=== PATIENT | male | born 1990 | race Caucasian/White ===

== ENCOUNTER 2018-11-06 12:23 | Emergency (ER) | payer SELFPAY ==
[2018-11-06] MEDS ORDERED: NA CHLORIDE 0.9% 1,000 ML ONE (13:15)
[2018-11-06] MEDS ORDERED: MORPHINE 4 MG/ML SYR ONE (13:15)
[2018-11-06] MEDS ORDERED: ONDANSETRON 4 MG/2 ML VIAL ONE (13:15)
[2018-11-06 13:20] LABS: Absolute Lymphocytes (CBC) 1.7 K/uL (0.7-4.9); Absolute Monocytes 0.6 K/uL (0.1-1.3); Absolute Neutrophil 3.9 K/uL (1.8-8.0); Basophils % 0.6 % (0-1.3); Hematocrit 44.3 % (39.6-49.0); Lymphocytes % 26.5 % (15.3-44.8); MPV 7.7 fL (7.6-11.3); Monocytes % 8.9 % (3.3-12.3); RBC Red Blood Cell Count 5.06 M/uL (4.33-5.43)
[2018-11-06 13:38] LABS: ALT/SGPT 28 U/L (12-78); AST/SGOT 12 U/L (15-37); Albumin 3.9 g/dL (3.4-5.0); Alkaline Phosphatase 65 U/L (45-117); BUN Blood Urea Nitrogen 14 mg/dL (7-18); Bicarbonate 30 mmol/L (21-32); Bilirubin Direct < 0.1 mg/dL (0-0.2); Bilirubin Total 0.3 mg/dL (0.2-1.0); Glucose Level 84 mg/dL (74-106); Lipase 109 U/L (73-393); Protein, Total 7.6 g/dL (6.4-8.2); Sodium Level 141 mmol/L (136-145)
--- NOTE | 2018-11-06 14:05 | RAD REPORT ---
EXAM DESCRIPTION: US - Abdomen Exam Limited - 11/06/2018 1:53 pm CLINICAL HISTORY: right sided abdominal pain COMPARISON: No comparisons FINDINGS: The gallbladder demonstrates no gallstones. No pericholecystic fluid or gallbladder wall t hickening. The common bile duct is normal measuring 3 mm. The liver demonstrates no findings of intrahepatic biliary dilatation. IMPRESSION: Unremarkable examination.
--- NOTE | 2018-11-06 14:17 | RAD REPORT ---
EXAM DESCRIPTION: CTAbdomen Pelvis W Contrast - 11/06/2018 2:07 pm CLINICAL HISTORY: Abdominal pain. right sided abdominal pain, IV ONLY COMPARISON: Abdomen Exam Limited dated 11/06/2018 TECHNIQUE: Biphasic CT imaging of the abdomen and pelvis was performed with 100 ml non-ionic IV cont rast. All CT scans are performed using dose optimization technique as appropriate and may include automated exposure control or mA/KV adjustment according to patient size. FINDINGS: The lung bases are clear. The liver, spleen, pancreas, adrenal glands and kidneys are within normal limits. No bowel obstruction, free air, free fluid or abscess. Sigmoid diverticulosis without diverticulitis. The appendix is normal. No evidence of significant lymphadenopathy. No suspicious bony findings. IMPRESSION: No acute intra-abdominal or pelvic finding.
[2018-11-06] MEDS ORDERED: KETOROLAC 30 MG/ML INJ ONE (14:40)
--- NOTE | 2018-11-06 16:07 | ER ---
Nurse's Notes [facility] Name: Gera Moore Age: 27 yrs Sex: Male : 1990 Arrival Date: 11/06/2018 Time: 12:25 Bed 14 Private MD: None, None Diagnosis: Unspecified abdominal pain Presentation: 11/06 12:41 Presenting complaint: Patient states: sharp pain to RLQ and RUQ pain that began 2-3 aa5 days ago. Pt denies N/V/D. Transition of care: patient was not received from another setting of care. Onset of symptoms was November 2018. Risk Assessment: Do you want to hurt yourself or someone else? Patient reports no desire to harm self or others. Initial Sepsis Screen: Does the patient meet any 2 criteria? No. Patient's initial sepsis screen is negative. Does the patient have a suspected source of infection? No. Patient's initial sepsis screen is negative. Care prior to arrival: None. 12:41 Method Of Arrival: Ambulatory aa5 12:41 Acuity: COLE 3 aa5 Historical: - Allergies: 12:41 No Known Allergies; aa5 - PMHx: 12:41 None; aa5 - PSHx: 12:41 None; aa5 - Immunization history:: Adult Immunizations up to date. - Social history:: Smoking status: Patient uses tobacco products, 1-2 cigarettes a day . - Ebola Screening: : No symptoms or risks identified at this time. Screenin:00 Abuse screen: Denies threats or abuse. Denies injuries from another. Nutritional jl7 screening: No deficits noted. Tuberculosis screening: No symptoms or risk factors identified. Fall Risk IV access (20 points). Assessment: 13:00 General: Appears in no apparent distress. uncomfortable, Behavior is calm, cooperative, jl7 appropriate for age. Pain: Complains of pain in right upper quadrant and right lower quadrant Pain currently is 9 out of 10 on a pain scale. Quality of pain is described as sharp, stabbing, Pain began 2-3 days ago. Is continuous. Neuro: Level of Consciousness is awake, alert, obeys commands, Oriented to person, place, time, situation. Cardiovascular: Patient's skin is warm and dry. Respiratory: Airway is patent Respiratory effort is even, unlabored, Respiratory pattern is regular, symmetrical. GI: Bowel sounds present X 4 quads. Abd is soft Abdomen is tender to palpation in right upper quadrant. : No signs and/or symptoms were reported regarding the genitourinary system. EENT: No signs and/or symptoms were reported regarding the EENT system. Derm: Skin is pink, warm \\T\\ dry. Musculoskeletal: No signs and/or symptoms reported regarding the musculoskeletal system. 14:00 Reassessment: Patient appears in no apparent distress at this time. Patient and/or jl7 family updated on plan of care and expected duration. Pain level reassessed. Patient is alert, oriented x 3, equal unlabored respirations, skin warm/dry/pink. 15:00 Reassessment: Patient appears in no apparent distress at this time. Patient and/or jl7 family updated on plan of care and expected duration. Pain level reassessed. Patient is alert, oriented x 3, equal unlabored respirations, skin warm/dry/pink. 15:30 Reassessment: ERP at bedside discussing plan of care. jl7 15:45 Reassessment: Pt reports "I don't have a ride home, I think I'm ok without the pain jl7 medication." ERP notified. Vital Signs: 12:42 BP 136 / 81; Pulse 80; Resp 16 S; Temp 97.4(TE); Pulse Ox 98% on R/A; Weight 127.01 kg aa5 (R); Height 6 ft. 2 in. (187.96 cm) (R); Pain 8/10; 13:10 BP 127 / 89; Pulse 74; Resp 16 S; Pulse Ox 99% on R/A; jl7 15:53 BP 124 / 84; Pulse 62; Resp 16 S; Pulse Ox 98% on R/A; jl7 12:42 Body Mass Index 35.95 (127.01 kg, 187.96 cm) aa5 ED Course: 12:25 Patient arrived in ED. mr 12:26 None, None is Private Physician. mr 12:41 Triage completed. aa5 12:41 Arm band placed on. aa5 12:44 Jere Rahman PA is PHCP. [facility] 12:44 Darryl Rodriguez MD is Attending Physician. [facility] 12:51 Leticia Winn RN is Primary Nurse. [facility] 13:15 Patient has correct armband on for positive identification. Placed in gown. Bed in low jl7 position. Call light in reach. Side rails up X 1. Pulse ox on. NIBP on. Warm blanket given. 13:30 Initial lab(s) drawn, by me, sent to lab. Inserted saline lock: 20 gauge in right jl7 antecubital area, using aseptic technique. Blood collected. 13:36 US Abdomen Limited In Process Unspecified. EDMS 14:06 CT completed. Patient tolerated procedure well. Patient moved to CT via wheelchair. Patient moved back from CT. 14:07 CT Abd/Pelvis - W/Contrast In Process Unspecified. EDMS 15:00 Urine collected: clean catch specimen, clear. jl7 16:05 Vitor Beyer MD is Referral Physician. [facility] 16:05 Louie Santos MD is Referral Physician. jm 16:06 Gera Amor MD is Referral Physician. [facility] 16:40 No provider procedures requiring assistance completed. IV discontinued, intact, jl7 bleeding controlled, No redness/swelling at site. Pressure dressing applied. Administered Medications: 13:13 Drug: Zofran 4 mg Route: IVP; Site: right antecubital; jl7 14:15 Follow up: Response: No adverse reaction jl7 13:15 Drug: morphine 4 mg Route: IVP; Site: right antecubital; jl7 14:15 Follow up: Response: No adverse reaction; Pain is unchanged, physician notified jl7 13:15 Drug: NS 0.9% (20 ml/kg) 20 ml/kg Route: IV; Rate: 1 bolus; Site: right antecubital; jl7 14:35 Drug: Ketorolac 30 mg Route: IVP; Site: right antecubital; jl7 15:00 Follow up: Response: No adverse reaction; Pain is decreased jl7 15:45 Not Given (pt unable to find a ride home): fentaNYL (PF) 50 mcg IVP once jl7 Outcome: 16:06 Discharge ordered by . [facility] 16:39 Discharged to home ambulatory. jl7 16:39 Condition: stable 16:39 Discharge instructions given to patient, family, Instructed on discharge instructions, follow up and referral plans. medication usage, Demonstrated understanding of instructions, follow-up care, medications, Prescriptions given X 2. 16:40 Patient left the ED. jl7 Signatures: Dispatcher [employer] Jere Gomes PA PA jmm Rivera, Adeola mr Jes Sifuentes Audri, RN RN aa5 Leticia Winn RN RN jl7
--- NOTE | 2018-11-06 16:08 | EDPHYS ---
Physician Documentation [facility] Name: Gera Moore Age: 27 yrs Sex: Male : 1990 Arrival Date: 11/06/2018 Time: 12:25 Bed 14 Private MD: None, None ED Physician Darryl Rodriguez HPI: 11/06 12:56 This 27 yrs old Male presents to ER via Ambulatory with complaints of jmm Abdominal Pain. 12:56 The patient presents with abdominal pain in the right upper quadrant, right lower jmm quadrant. Onset: The symptoms/episode began/occurred gradually. The symptoms do not radiate. Associated signs and symptoms: Pertinent negatives: nausea and vomiting, diarrhea. This is a 27 year old male that presents to the ED with complaints of right sided abdominal pain worsened when he walks. Patient denies vomiting, diarrhea, fever. Patient denies lack of appetite. Symptoms have been ongoing for approx 2 days. . Historical: - Allergies: 12:41 No Known Allergies; aa5 - PMHx: 12:41 None; aa5 - PSHx: 12:41 None; aa5 - Immunization history:: Adult Immunizations up to date. - Social history:: Smoking status: Patient uses tobacco products, 1-2 cigarettes a day . - Ebola Screening: : No symptoms or risks identified at this time. ROS: 12:56 Constitutional: Negative for fever, chills, and weight loss, Cardiovascular: Negative jmm for chest pain, palpitations, and edema, Respiratory: Negative for shortness of breath, cough, wheezing, and pleuritic chest pain. 12:56 Back: Negative for injury and pain, : Negative for injury, bleeding, discharge, and swelling, Skin: Negative for injury, rash, and discoloration, Neuro: Negative for headache, weakness, numbness, tingling, and seizure. 12:56 Abdomen/GI: Positive for abdominal pain, Negative for nausea and vomiting, diarrhea. Exam: 12:56 Constitutional: This is a well developed, well nourished patient who is awake, alert, jmm and in no acute distress. Head/Face: atraumatic. Eyes: EOMI, no conjunctival erythema appreciated ENT: Moist Mucus Membranes Neck: Trachea midline, Supple Chest/axilla: Normal chest wall appearance and motion. Cardiovascular: Regular rate and rhythm. No edema appreciated Respiratory: Normal respirations, no respiratory distress appreciated 12:56 Back: Normal ROM Skin: General appearance color normal MS/ Extremity: Moves all [facility] extremities, no obvious deformities appreciated, no edema noted to the lower extremities Neuro: Awake and alert, normal gait Psych: Behavior is normal, Mood is normal, Patient is cooperative and pleasant 12:56 Abdomen/GI: Inspection: abdomen appears normal, Bowel sounds: normal, Palpation: soft, moderate abdominal tenderness, in the right upper quadrant and right lower quadrant. Vital Signs: 12:42 BP 136 / 81; Pulse 80; Resp 16 S; Temp 97.4(TE); Pulse Ox 98% on R/A; Weight 127.01 kg aa5 (R); Height 6 ft. 2 in. (187.96 cm) (R); Pain 8/10; 13:10 BP 127 / 89; Pulse 74; Resp 16 S; Pulse Ox 99% on R/A; jl7 15:53 BP 124 / 84; Pulse 62; Resp 16 S; Pulse Ox 98% on R/A; jl7 12:42 Body Mass Index 35.95 (127.01 kg, 187.96 cm) aa5 MDM: 12:56 Patient medically screened. [facility] 16:03 Data reviewed: vital signs, nurses notes, lab test result(s), radiologic studies, CT [facility] scan, ultrasound. Counseling: I had a detailed discussion with the patient and/or guardian regarding: the historical points, exam findings, and any diagnostic results supporting the discharge/admit diagnosis, lab results, radiology results, the need for outpatient follow up, to return to the emergency department if symptoms worsen or persist or if there are any questions or concerns that arise at home. Response to treatment: the patient's symptoms have mildly improved after treatment, and as a result, I will discharge patient. 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 Symptoms may be due to musculoskeletal pain. CT and US imaging is unremarkable. Patient is advised to follow up with GI for further evaluation. Patient is otherwise given return precautions which included early appendicitis signs and symptoms. Patient understood and agrees with the plan of care. . 11/06 13:04 Order name: Basic Metabolic Panel; Complete Time: 13:[address] [facility] 11/06 13:04 Order name: CBC with Diff; Complete Time: :[address] [facility] 11/06 13:04 Order name: Creatinine for Radiology; Complete Time: 13:[address] [facility] 11/06 13:04 Order name: Hepatic Function; Complete Time: 13:[address] [facility] 11/06 13:04 Order name: Lipase; Complete Time: 13:[address] [facility] 11/06 15:25 Order name: Urine Dipstick--Ancillary (enter results); Complete Time: 16:27 11/06 13:04 Order name: IV Saline Lock; Complete Time: 13:[address] [facility] 11/06 13:17 Order name: US Abdomen Limited; Complete Time: 14:[address] [facility] 11/06 13:17 Order name: CT Abd/Pelvis - W/Contrast; Complete Time: 14:[address] [facility] 11/06 13:04 Order name: Labs collected and sent; Complete Time: 13:[address] [facility] Administered Medications: 13:13 Drug: Zofran 4 mg Route: IVP; Site: right antecubital; jl7 14:15 Follow up: Response: No adverse reaction jl7 13:15 Drug: morphine 4 mg Route: IVP; Site: right antecubital; jl7 14:15 Follow up: Response: No adverse reaction; Pain is unchanged, physician notified jl7 13:15 Drug: NS 0.9% (20 ml/kg) 20 ml/kg Route: IV; Rate: 1 bolus; Site: right antecubital; jl7 14:35 Drug: Ketorolac 30 mg Route: IVP; Site: right antecubital; jl7 15:00 Follow up: Response: No adverse reaction; Pain is decreased jl7 15:45 Not Given (pt unable to find a ride home): fentaNYL (PF) 50 mcg IVP once jl7 Disposition: 17:16 Co-signature as Attending Physician, Darryl Rodriguez MD. rn Disposition: 11/06/18 16:06 Discharged to Home. Impression: Unspecified abdominal pain. - Condition is Stable. - Discharge Instructions: Abdominal Pain, Adult. - Prescriptions for Bentyl 20 mg Oral Tablet - take 1 tablet by ORAL route every 6 hours As needed; 20 tablet. Ultracet 37.5- 325 mg Oral Tablet - take 1 tablet by ORAL route every 6 hours - for up to 5 days; do not exceed 8 tablets per day.; 12 tablet. - Medication Reconciliation Form, Thank You Letter, Antibiotic Education, Prescription Opioid Use, Work release form form. - Follow up: Vitor Beyer MD; When: 1 - 2 days; Reason: Recheck today's complaints, Continuance of care, Re-evaluation by your physician. Follow up: Louie Santos MD; When: 1 - 2 days; Reason: Recheck today's complaints, Continuance of care, Re-evaluation by your physician. Follow up: Gera Amor MD; When: 1 - 2 days; Reason: Recheck today's complaints, Continuance of care, Re-evaluation by your physician. Signatures: Dispatcher [employer] EDMS Jere Rahman PA PA Darryl Rose MD MD rn Lashell Navarro RN RN aa5 Leticia Winn RN RN jl7 Corrections: (The following items were deleted from the chart) 16:40 16:06 11/06/2018 16:06 Discharged to Home. Impression: Unspecified abdominal pain. jl7 Condition is Stable. Forms are Medication Reconciliation Form, Thank You Letter, Antibiotic Education, Prescription Opioid Use. Follow up: Vitor Beyer; When: 1 - 2 days; Reason: Recheck today's complaints, Continuance of care, Re-evaluation by your physician. Follow up: Louie Santos; When: 1 - 2 days; Reason: Recheck today's complaints, Continuance of care, Re-evaluation by your physician. Follow up: Gera Amor; When: 1 - 2 days; Reason: Recheck today's complaints, Continuance of care, Re-evaluation by your physician. tyrel
[2018-11-06 16:22] LABS: Urine Blood NEGATIVE (NEG); Urine Glucose NEGATIVE (NEG); Urine Protein NEGATIVE (NEG)
== END 2018-11-06 16:40 | disposition home or self-care (01) ==
LOC: ER 12:23
DX: R10.9 Unspecified abdominal pain (principal); Z72.0 Tobacco use
CPT/HCPCS: 36415; 74177; 76705; 80048; 80076; 81003; 83690; 85025; 96374; 96375; 99284; J2405; J7030; Q9967

== ENCOUNTER 2019-06-10 10:39 | Emergency (ER) | payer SELFPAY ==
[2019-06-10 11:23] LABS: Absolute Lymphocytes (CBC) 1.8 K/uL (0.7-4.9); Basophils % 0.5 % (0-1.3); Hematocrit 44.7 % (39.6-49.0); Lymphocytes % 25.3 % (15.3-44.8); MPV 7.8 fL (7.6-11.3); RBC Red Blood Cell Count 4.99 M/uL (4.33-5.43)
[2019-06-10] MEDS ORDERED: LIDOCAINE VISCOUS 2% SOLN 15 ML UDC ONE (11:28)
[2019-06-10] MEDS ORDERED: FAMOTIDINE 20 MG/2 ML VIAL IV ONE (11:28)
[2019-06-10] MEDS ORDERED: MAGNE/ALUM HYDROXD 30 ML UCUP ONE (11:28)
--- NOTE | 2019-06-10 11:31 | RAD REPORT ---
EXAM DESCRIPTION: US - Abdomen Exam Limited - 06/10/2019 11:24 am CLINICAL HISTORY: Abdominal pain. COMPARISON: November 2018 FINDINGS: The gallbladder wall is not thickened. A gallstone is not seen. The biliary tree is normal caliber. IMPRESSION: Unremarkable gallbladder ultrasound.
[2019-06-10 11:45] LABS: ALT/SGPT 79 U/L (12-78); AST/SGOT 36 U/L (15-37); Albumin 3.8 g/dL (3.4-5.0); Alkaline Phosphatase 58 U/L (45-117); BUN Blood Urea Nitrogen 13 mg/dL (7-18); Bicarbonate 28 mmol/L (21-32); Bilirubin Direct < 0.1 mg/dL (0-0.2); Bilirubin Total 0.3 mg/dL (0.2-1.0); Glucose Level 94 mg/dL (74-106); Lipase 140 U/L (73-393); Potassium 4.2 mmol/L (3.5-5.1); Protein, Total 7.5 g/dL (6.4-8.2); Sodium Level 143 mmol/L (136-145)
[2019-06-10] MEDS ORDERED: MEPERIDINE HCL 25 MG/0.5 ML ONE (12:08)
[2019-06-10 12:52] VITALS: BP 144/98; TEMP 98.2; O2SAT 99
--- NOTE | 2019-06-10 13:04 | ER ---
Nurse's Notes [facility] Name: Gera Moore Age: 28 yrs Sex: Male : 1990 Arrival Date: 06/10/2019 Time: 10:41 Bed 2 Private MD: Diagnosis: Gastritis, unspecified Presentation: 06/10 10:49 Presenting complaint: Patient states: hx of stomach ulcer, upper abd pain X 1 week, iw intermittent burning pain. Transition of care: patient was not received from another setting of care. Onset of symptoms was June 02, 2019. Risk Assessment: Do you want to hurt yourself or someone else? Patient reports no desire to harm self or others. Initial Sepsis Screen: Does the patient meet any 2 criteria? No. Patient's initial sepsis screen is negative. Does the patient have a suspected source of infection? No. Patient's initial sepsis screen is negative. Care prior to arrival: None. 10:49 Method Of Arrival: Ambulatory iw 10:49 Acuity: COLE 3 iw Historical: - Allergies: 10:51 No Known Allergies; iw - Home Meds: 10:51 None [Active]; iw - PMHx: 10:51 Ulcers; iw - PSHx: 10:51 None; iw - Immunization history:: Adult Immunizations not up to date. - Social history:: Smoking status: Patient uses tobacco products, denies chronic smoking, but will smoke occasionally. - Ebola Screening: : Patient negative for fever greater than or equal to 101.5 degrees Fahrenheit, and additional compatible Ebola Virus Disease symptoms Patient denies exposure to infectious person Patient denies travel to an Ebola-affected area in the 21 days before illness onset No symptoms or risks identified at this time. - Family history:: not pertinent. - Hospitalizations: : No recent hospitalization is reported. Screenin:02 Abuse screen: Denies threats or abuse. Nutritional screening: No deficits noted. la1 Tuberculosis screening: No symptoms or risk factors identified. Fall Risk None identified. Assessment: 11:01 General: Appears in no apparent distress. Behavior is calm, cooperative. Pain: la1 Complains of pain in epigastric area, right upper quadrant and left upper quadrant. Neuro: Level of Consciousness is awake, alert, obeys commands. Cardiovascular: Capillary refill < 3 seconds Patient's skin is warm and dry. Respiratory: Airway is patent Respiratory effort is even, unlabored, Respiratory pattern is regular, symmetrical. GI: Abdomen is round non-distended, Bowel sounds present X 4 quads. Abd is soft and non tender X 4 quads. : No signs and/or symptoms were reported regarding the genitourinary system. 11:51 Reassessment: Patient appears in no apparent distress at this time. No changes from la1 previously documented assessment. Patient and/or family updated on plan of care and expected duration. Pain level reassessed. Patient is alert, oriented x 3, equal unlabored respirations, skin warm/dry/pink. Vital Signs: 10:52 BP 144 / 98; Pulse 81; Resp 16; Temp 98.2; Pulse Ox 99% on R/A; Weight 117.93 kg; iw Height 6 ft. 2 in. (187.96 cm); Pain 10/10; 10:52 Body Mass Index 33.38 (117.93 kg, 187.96 cm) iw ED Course: 10:41 Patient arrived in ED. rg4 10:45 Galen Garcia RN is Primary Nurse. la1 10:50 Darryl Rodriguez MD is Attending Physician. rn 10:51 Triage completed. iw 10:52 Arm band placed on. iw 11:01 No provider procedures requiring assistance completed. Inserted saline lock: 18 gauge la1 in right antecubital area, using aseptic technique. Blood collected. 11:02 Patient has correct armband on for positive identification. la1 11:26 US Abdomen Limited In Process Unspecified. EDMS 12:02 Gera Amor MD is Referral Physician. rn 12:42 IV discontinued, intact, bleeding controlled, No redness/swelling at site. Pressure iw dressing applied. Administered Medications: 11:34 Drug: Pepcid 20 mg Route: IVP; Site: right antecubital; la1 11:58 Follow up: Response: No adverse reaction la1 11:34 Drug: GI Cocktail without - (Maalox Suspension 30 ml, Lidocaine Liquid 2 % 15 la1 ml) Route: PO; 11:58 Follow up: Response: No adverse reaction la1 12:10 Drug: Demerol 25 mg {Note: RASS score 0 Patient is alert.} Route: IVP; Site: right la1 antecubital; Outcome: 12:03 Discharge ordered by . rn 12:42 Discharged to home ambulatory, with family. iw 12:42 Condition: good 12:42 Discharge instructions given to patient, Instructed on discharge instructions, follow up and referral plans. medication usage, Demonstrated understanding of instructions, follow-up care, medications, Prescriptions given X 2. 12:42 Patient left the ED. iw Signatures: Dispatcher [employer] EDKrystal Buchanan RN RN iw Nieto, Roman, MD MD rn Attema, Lee, RN RN laAmisha Correa 4 Corrections: (The following items were deleted from the chart) 12:42 12:42 Discharge instructions given to patient, Instructed on discharge instructions, iw follow up and referral plans. medication usage, Demonstrated understanding of instructions, follow-up care, medications, Prescriptions given X 1, iw
--- NOTE | 2019-06-10 13:05 | EDPHYS ---
Physician Documentation [facility] Name: Gera Moore Age: 28 yrs Sex: Male : 1990 Arrival Date: 06/10/2019 Time: 10:41 Bed 2 Private MD: ED Physician Darryl Rodriguez HPI: 06/10 11:14 This 28 yrs old Male presents to ER via Ambulatory with complaints of rn Abdominal Pain. 11:14 The patient presents with abdominal pain in the epigastric area, in the upper abdomen. rn Onset: The symptoms/episode began/occurred 1 week(s) ago. The symptoms do not radiate. Associated signs and symptoms: Pertinent negatives: blood in stools, fever, shortness of breath, vomiting. The symptoms are described as burning. Modifying factors: The symptoms are alleviated by nothing, the symptoms are aggravated by food, touching the area. Severity of pain: At its worst the pain was moderate in the emergency department the pain has improved. The patient has experienced similar episodes in the past. Reports had similar symptoms earlier in year, diagnosed with PUD and H. Pylori, took abx, and got better, now having identical upper abd pain. No blood in stool or dark stool. . Historical: - Allergies: 10:51 No Known Allergies; iw - Home Meds: 10:51 None [Active]; iw - PMHx: 10:51 Ulcers; iw - PSHx: 10:51 None; iw - Immunization history:: Adult Immunizations not up to date. - Social history:: Smoking status: Patient uses tobacco products, denies chronic smoking, but will smoke occasionally. - Ebola Screening: : Patient negative for fever greater than or equal to 101.5 degrees Fahrenheit, and additional compatible Ebola Virus Disease symptoms Patient denies exposure to infectious person Patient denies travel to an Ebola-affected area in the 21 days before illness onset No symptoms or risks identified at this time. - Family history:: not pertinent. - Hospitalizations: : No recent hospitalization is reported. ROS: 11:14 Constitutional: Negative for fever, chills, and weight loss, Eyes: Negative for injury, rn pain, redness, and discharge, Neck: Negative for injury, pain, and swelling, Cardiovascular: Negative for chest pain, palpitations, and edema, Respiratory: Negative for shortness of breath, cough, wheezing, and pleuritic chest pain, Abdomen/GI: Negative for nausea, vomiting, diarrhea, and constipation, Back: Negative for injury and pain, : Negative for injury, bleeding, discharge, and swelling, MS/Extremity: Negative for injury and deformity, Skin: Negative for injury, rash, and discoloration, Neuro: Negative for headache, weakness, numbness, tingling, and seizure. Exam: 11:14 Constitutional: This is a well developed, well nourished patient who is awake, alert, rn and in no acute distress. ENT: MMM Cardiovascular: Regular rate and rhythm. No pulse deficits. Respiratory: No increased work of breathing, no retractions or nasal flaring. Abdomen/GI: + tender RUQ/LUQ and epigastric regions, neg hameed, no peritoneal signs Skin: Warm, dry MS/ Extremity: Pulses equal, no cyanosis. Neurovascular intact. Full, normal range of motion. Equal circumference. Neuro: Awake and alert, GCS 15, oriented to person, place, time, and situation. Vital Signs: 10:52 BP 144 / 98; Pulse 81; Resp 16; Temp 98.2; Pulse Ox 99% on R/A; Weight 117.93 kg; iw Height 6 ft. 2 in. (187.96 cm); Pain 10/10; 10:52 Body Mass Index 33.38 (117.93 kg, 187.96 cm) iw MDM: 10:50 Patient medically screened. rn 11:57 Differential diagnosis: cholecystitis, Cholelithiasis, gastritis, gastroesophageal rn reflux disease, non-specific abd pain, pancreatitis. Data reviewed: vital signs, nurses notes, lab test result(s), radiologic studies, ultrasound, and as a result, I will discharge patient. Counseling: I had a detailed discussion with the patient and/or guardian regarding: the historical points, exam findings, and any diagnostic results supporting the discharge/admit diagnosis, lab results, radiology results, the need for outpatient follow up, to return to the emergency department if symptoms worsen or persist or if there are any questions or concerns that arise at home. Response to treatment: the patient's symptoms have markedly improved after treatment, and as a result, I will discharge patient. Special discussion: I discussed with the patient/guardian in detail that at this point there is no indication for admission to the hospital. It is understood, however, that if the symptoms persist or worsen the patient needs to return immediately for re-evaluation. Based on the presenting symptoms and work-up in the emergency department, I discussed in detail the need to arrange with the PCP or specialist an outpatient procedure, esophagogastroduodenoscopy by the GI specialist, Based on the history and exam findings, there is no indication for further emergent testing or inpatient evaluation. I discussed with the patient/guardian the need to see the hvac sales representative for further evaluation of the symptoms. 06/10 10:59 Order name: Basic Metabolic Panel; Complete Time: 11:48 rn 06/10 10:59 Order name: CBC with Diff; Complete Time: 11:48 rn 06/10 10:59 Order name: Hepatic Function; Complete Time: 11:48 rn 06/10 10:59 Order name: Lipase; Complete Time: :48 rn 06/10 10:59 Order name: US Abdomen Limited; Complete Time: 11:48 rn 06/10 10:59 Order name: IV Saline Lock; Complete Time: 11:02 rn 06/10 10:59 Order name: Labs collected and sent; Complete Time: 11:02 rn Administered Medications: 11:34 Drug: Pepcid 20 mg Route: IVP; Site: right antecubital; la1 11:58 Follow up: Response: No adverse reaction la1 11:34 Drug: GI Cocktail without - (Maalox Suspension 30 ml, Lidocaine Liquid 2 % 15 la1 ml) Route: PO; 11:58 Follow up: Response: No adverse reaction la1 12:10 Drug: Demerol 25 mg {Note: RASS score 0 Patient is alert.} Route: IVP; Site: right la1 antecubital; Disposition: 06/10/19 12:03 Discharged to Home. Impression: Gastritis, unspecified. - Condition is Stable. - Discharge Instructions: Gastritis, Adult. - Prescriptions for Protonix 40 mg Oral Tablet - take 1 tablet by ORAL route once daily; 30 tablet. Ultram 50 mg Oral Tablet - take 1 tablet by ORAL route every 8-12 hours As needed; 20 tablet. - Work release form, Medication Reconciliation Form, Thank You Letter, Antibiotic Education, Prescription Opioid Use form. - Follow up: Gera Amor MD; When: As needed; Reason: Recheck today's complaints, Re-evaluation by your physician. - Problem is new. - Symptoms have improved. Signatures: Dispatcher [employer] Krystal Swain RN RN iw Darryl Rodriguez MD MD rn Attema, Lee, RN RN la1 Corrections: (The following items were deleted from the chart) 12:42 12:03 06/10/2019 12:03 Discharged to Home. Impression: Gastritis, unspecified. iw Condition is Stable. Forms are Medication Reconciliation Form, Thank You Letter, Antibiotic Education, Prescription Opioid Use. Follow up: Gera Amor; When: As needed; Reason: Recheck today's complaints, Re-evaluation by your physician. Problem is new. Symptoms have improved. rn
== END 2019-06-10 12:42 | disposition home or self-care (01) ==
LOC: ER 10:39
DX: K29.70 Gastritis, unspecified, without bleeding (principal); Z72.0 Tobacco use
CPT/HCPCS: 36415; 76705; 80048; 80076; 83690; 85025; 96374; 96375; 99284; J2175